=== PATIENT | female | born 1960 | race African-American/Black ===

== ENCOUNTER 2019-05-12 15:29 | Inpatient (IN) | payer OTHER ==
[2019-05-12 15:59] VITALS: BMI 33.6
--- NOTE | 2019-05-12 17:18 | HP ---
COWS - Scale Resting Pulse: 0= [place] 80 or Below Sweatin=Flushed/Facial Moisture Restless Observation: 0= Sits Still Pupil Size: 0= Normal to Room Light Bone or Joint Aches: 1= Mild Discomfort Runny Nose/ Eye Tearin= Nasal Congestion GI Upset > 30mins: 2= Nausea/Diarrhea Tremor Observation: 1= Tremor [place], Not Seen Yawning Observation: 1= 1-2x During Session Anxiety or Irritability: 1=Feels Anxious/Irritable Goose Flesh Skin: 3=Piloerection COWS Score: 12 CIWA Score - Admission Criteria OASAS Guidelines: Admission for Medically Managed Detox: Requires at least one of the followin. CIWA greater than 12 2. Seizures within the past 24 hours 3. Delirium tremens within the past 24 hours 4. Hallucinations within the past 24 hours 5. Acute intervention needed for co occurring medical disorder 6. Acute intervention needed for co occurring psychiatric disorder 7. Severe withdrawal that cannot be handled at a lower level of care (continued vomiting, continued diarrhea, abnormal vital signs) requiring intravenous medication and/or fluids 8. Admitting History and Physical - Admission Chief Complaint: Withdrawal symptoms History of Present Illness: 58 woman with an extensive history of heroin dependence is here seeking detox services. She reports she last completed detox in 2017 at [facility]. Longest period of heroin abstinence has been 2 years. History Source: Patient Limitations to Obtaining History: No Limitations - Past Medical History Cardiovascular: Yes: HTN Pulmonary: Yes: Asthma Gastrointestinal: Yes: Gastritis, GERD Psych: Yes: Anxiety, Bipolar Musculoskeletal: Yes: Chronic low back pain Rheumatology: Yes: Rheumatoid Arthritis - Past Surgical History Past Surgical History: Yes: , Hernia Repair, Hysterectomy - Smoking History Smoking history: Current every day smoker Have you smoked in the past 12 months: Yes Aproximately how many cigarettes per day: 7 - Alcohol/Substance Use Hx Alcohol Use: No History of Substance Use: reports: Heroin Date of Last Use: 05/12/19 - Social History Usual Living Arrangement: Yes: With Child Do you think of yourself as: Straight/Heterosexual ADL: Independent History of Recent Travel: No Admission ROS S - HPI Chief Complaint: Withdrawal symptoms Allergies/Adverse Reactions: Allergies Allergy/AdvReac Type Severity Reaction Status Date / Time acetaminophen [From Vicodin] AdvReac Intermediate Difficulty Verified 05/12/19 15:48 Breathing aspirin AdvReac Intermediate Hives Verified 05/12/19 15:48 hydrocodone [From Vicodin] AdvReac Intermediate Difficulty Verified 05/12/19 15: 48 Breathing Tetracyclines AdvReac Intermediate Hives Verified 05/12/19 15:48 History of Present Illness: 58 woman with an extensive history of heroin dependence is here seeking detox services. She reports she last completed detox in 2017 at [facility]. Longest period of heroin abstinence has been 2 years. Exam Limitations: No Limitations - Ebola screening Have you traveled outside of the country in the last 21 days: No Have you had contact with anyone from an Ebola affected area: No Do you have a fever: No - Review of Systems Constitutional: Chills, Changes in sleep, Unintentional Wgt. Loss EENT: reports: Tearing, Nose Congestion Respiratory: reports: Cough, Shortness of Breath Cardiac: reports: No Symptoms Reported GI: reports: Nausea, Abdominal cramping : reports: No Symptoms Reported Musculoskeletal: reports: Back Pain, Joint Pain, Neck Pain Integumentary: reports: No Symptoms Reported Neuro: reports: Numbness, Weakness Endocrine: reports: No Symptoms Reported Hematology: reports: No Symptoms Reported Psychiatric: reports: Orientated x3, Depressed, other (H/o bipolar and depression) Other Systems: Reviewed and Negative Patient History - Patient Medical History Hx Anemia: No Hx Asthma: Yes Hx Chronic Obstructive Pulmonary Disease (COPD): No Hx Cancer: No Hx Cardiac Disorders: Yes Hx Congestive Heart Failure: No Hx Hypertension: Yes Hx Hypercholesterolemia: No Hx Pacemaker: No HX Cerebrovascular Accident: Yes (H/o CVA in 2006) Hx Seizures: No Hx Dementia: No Hx Diabetes: No Hx Gastrointestinal Disorders: Yes Hx Liver Disease: No Hx Genitourinary Disorders: No Hx Sexually Transmitted Disorders: Yes (Chlamydia (treated)) Hx Renal Disease (ESRD): No Hx Thyroid Disease: No Hx Human Immunodeficiency Virus (HIV): No Hx Hepatitis C: No Hx Depression: Yes Hx Suicide Attempt: Yes (2004: Attempted to overdose on pills ) Hx Bipolar Disorder: Yes Hx Schizophrenia: No Other Medical History: H/o Anxiety - Patient Surgical History Past Surgical History: Yes Hx Abdominal Surgery: Yes (Hernia repair ) Hx Section: Yes Hx Hysterectomy: Yes - PPD History Previous Implant?: Yes Documented Results: Negative w/o proof PPD to be Administered?: Yes - Reproductive History Patient is a Female of Child Bearing Age (11 -55 yrs old): No Last Menstrual Period: 05/20/86 Patient : No - Smoking Cessation Smoking history: Current every day smoker Have you smoked in the past 12 months: Yes Aproximately how many cigarettes per day: 7 Initiated information on smoking cessation: Yes 'Breaking Loose' booklet given: 05/12/19 - Substance & Tx. History Hx Alcohol Use: No Hx Substance Use: Yes Substance Use Type: Heroin Hx Substance Use Treatment: Yes (2017: Detox at [facility] ) - Substances abused Heroin Substance route: Inhalation Frequency: Daily Amount used: 7 BAGS Age of first use: 32 Date of last use: 05/12/19 Admission Physical Exam [facility] - Vital Signs Vital Signs: Vital Signs - 24 hr 05/12/19 05/12/19 15:43 16:56 Temperature 98 F 98 F Pulse Rate 65 65 Respiratory 18 18 Rate Blood Pressure 121/73 121/73 - Physical General Appearance: Yes: Sweating, Anxious HEENTM: Yes: Hearing grossly Normal, Normocephalic, Normal Voice Respiratory: Yes: Chest Non-Tender, Lungs Clear, Normal Breath Sounds, No Respiratory Distress, No Accessory Muscle Use Breast: Yes: Breast Exam Deferred Cardiology: Yes: Regular Rhythm, Regular Rate Abdominal: Yes: Normal Bowel Sounds, Non Tender Genitourinary: Yes: Other (No complaints reported.) Back: Yes: Normal Inspection Musculoskeletal: Yes: full range of Motion, Gait Steady, Pelvis Stable Extremities: Yes: Non-Tender Neurological: Yes: Alert, Normal Mood/Affect, Normal Response Integumentary: Yes: Normal Color, Dry, Warm Lymphatic: Yes: Within Normal Limits - Diagnostic (1) Opioid dependence, uncomplicated Current Visit: Yes Status: Chronic (2) Nicotine dependence Current Visit: Yes Status: Chronic (3) HTN (hypertension) Current Visit: Yes Status: Chronic (4) Asthma Current Visit: Yes Status: Chronic (5) History of CVA (cerebrovascular accident) Current Visit: Yes Status: Chronic (6) Neuropathy Current Visit: Yes Status: Chronic (7) Gastritis Current Visit: Yes Status: Chronic (8) Rheumatoid arthritis Current Visit: Yes Status: Chronic Cleared for Admission S - Detox or Rehab S Level of Care: Medically Managed Detox Regimen/Protocol: Methadone Breathalyzer - Breathalyzer Breathalyzer: 0 Urine Drug Screen - Test Device Lot number: [id number] Expiration date: 12/17/20 - Control Is test valid?: Yes - Results Drug screen NEGATIVE: No Urine drug screen results: FEN-Fentanyl, MOP-Opiates, BZO-Benzodiazepines Inpatient Rehab Admission - Rehab Decision to Admit Inpatient rehab admission?: No
[2019-05-12] MEDS ORDERED: MAG HYDROX/AL HYDROX/SIMETH 30 ML UNIT-DOSE CUP PO PRN (17:36)
[2019-05-12] MEDS ORDERED: hydrOXYzine PAMOATE 25 MG CAPSULE (FP) PO PRN (17:36)
[2019-05-12] MEDS ORDERED: cloNIDine HCL 0.1 MG TABLET PO PRN (17:36)
[2019-05-12] MEDS ORDERED: IBUPROFEN 400 MG TABLET (FP) PO PRN (17:36)
[2019-05-12] MEDS ORDERED: BISMUTH SUBSALICYLATE 524 MG/30 ML UD PO PRN (17:36)
[2019-05-12] MEDS ORDERED: NICOTINE POLACRILEX 2 MG GUM BUC PRN (17:36)
[2019-05-12] MEDS ORDERED: MAGNESIUM CITRATE 300 ML BOTTLE PO PRN (17:36)
[2019-05-12] MEDS ORDERED: MAGNESIUM HYDROX 2400MG/30ML ORAL SUSPENSION 30 ML CUP PO PRN (17:36)
[2019-05-12] MEDS ORDERED: MENTHOL/PHENOL 1 EACH UD MM PRN (17:36)
[2019-05-12] MEDS ORDERED: MELATONIN 5 MG TABLETS PO PRN (17:36)
[2019-05-12] MEDS ORDERED: ALBUTEROL SO4 8 GM HFA INHALER IH PRN (17:39)
[2019-05-12] MEDS ORDERED: METHADONE HCL 10 MG TABLET (FOR DETOX USE ONLY) PO ONE (18:30)
[2019-05-12] MEDS: clonazePAM 0.5 MG TABLET PO PRN ×2 (18:54→22:34)
[2019-05-12] MEDS ORDERED: traZODone HCL 50 MG TABLET (FP) PO PRN (22:00)
[2019-05-12] MEDS: THIAMINE HCL 100 MG TABLET (FP) PO SCH (22:33)
[2019-05-12] MEDS: METHOCARBAMOL 500 MG TABLET PO PRN (22:35)
[2019-05-13] MEDS ORDERED: METHADONE HCL 5 MG TABLET (FOR DETOX USE ONLY) PO ONE (10:00)
[2019-05-13] MEDS: PRENATAL VITAMINS W/ FOLIC ACID TABLET (FP) PO SCH (10:20)
[2019-05-13] MEDS: MONTELUKAST NA 10 MG TABLET PO SCH (10:20)
[2019-05-13] MEDS: PATIENT'S OWN MEDICATION (NON-FORMULARY) (Omeprazole [Omeprazole] 40 MG) PO SCH (10:20)
--- NOTE | 2019-05-13 10:46 | PN ---
BHS COWS - Scale Resting Pulse: 0= [place] 80 or Below Sweatin= Chills/Flushing Restless Observation: 0= Sits Still Pupil Size: 0= Normal to Room Light Bone or Joint Aches: 1= Mild Discomfort Runny Nose/ Eye Tearin= Runny Nose/Eyes GI Upset > 30mins: 1= Stomach Cramp Tremor Observation of Outstretched Hands: 2= Slight Tremor Visible Yawning Observation: 0= None Anxiety or Irritability: 2=Irritable/Anxious Goose Flesh Skin: 0=Smooth Skin COWS Score: 9 BHS Progress Note (SOAP) Subjective: 58 years old female admitted on 05/12/19 for opiate withdrawal sx management treating with methadone detox regimen c/o running nose claritin 10 mg po hs x 1 Objective: 05/13/19 10:48 Vital Signs Temperature 98.4 F 05/13/19 09:26 Pulse Rate 58 L 05/13/19 09:26 Respiratory Rate 18 05/13/19 09:26 Blood Pressure 123/80 05/13/19 09:26 O2 Sat by Pulse Oximetry (%) 05/13/19 10:48 lab pending Assessment: 05/13/19 10:48 opiate withdrawal Plan: methadone regimen
[2019-05-13 11:01] LABS: BILIRUBIN,TOTAL 0.3 mg/dL (0.2-1); BLOOD UREA NITROGEN 10.1 mg/dL (7-18); CREATININE 0.8 mg/dL (0.55-1.3); POTASSIUM 3.5 mmol/L (3.5-5.1); TOT PROT 6.2 g/dl (6.4-8.2)
[2019-05-13 11:02] LABS: HEMATOCRIT 36.4 % (32.4-45.2); HEMOGLOBIN 11.8 GM/dL (10.7-15.3); MCH 29.3 pg (25.7-33.7); MCHC 32.4 g/dl (32.0-36.0); MEAN CELL VOLUME 90.5 fl (80-96); MEAN PLT VOLUME 11.1 fl (7.5-11.1); PLATELET COUNT 181 K/MM3 (134-434); RBC 4.03 M/mm3 (3.60-5.2); RDW 13.6 % (11.6-15.6); WHITE BLOOD COUNT 6.3 K/mm3 (4.0-10.0)
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
[2019-05-13] MEDS ORDERED: LORATADINE 10 MG TABLET PO ONE (22:00)
[2019-05-13] MEDS ORDERED: AMITRIPTYLINE HCL 50 MG TABLET PO SCH (22:00)
[2019-05-13] MEDS: METHOCARBAMOL 500 MG TABLET PO PRN (22:23)
[2019-05-13] MEDS: THIAMINE HCL 100 MG TABLET (FP) PO SCH (22:23)
--- NOTE | 2019-05-14 05:13 | EKG ---
Test Reason : Blood Pressure : / mmHG Vent. Rate : 058 BPM Atrial Rate : 058 BPM P-R Int : 138 ms QRS Dur : 096 ms QT Int : 444 ms P-R-T Axes : 050 023 032 degrees QTc Int : 435 ms SINUS BRADYCARDIA NONSPECIFIC T WAVE ABNORMALITY ABNORMAL ECG NO PREVIOUS ECGS AVAILABLE Confirmed by LUIS BEJARANO, TATO ([id number]) on 05/14/2019 5:13:14 AM Referred By: MARTINA Confirmed By:TATO SMITH MD
--- NOTE | 2019-05-14 09:32 | PN ---
BHS COWS - Scale Resting Pulse: 0= [place] 80 or Below Sweatin= No chills or Flushing Restless Observation: 0= Sits Still Pupil Size: 0= Normal to Room Light Bone or Joint Aches: 1= Mild Discomfort Runny Nose/ Eye Tearin= Nasal Congestion GI Upset > 30mins: 1= Stomach Cramp Tremor Observation of Outstretched Hands: 1= Tremor [place], Not Seen Yawning Observation: 0= None Anxiety or Irritability: 1=Feels Anxious/Irritable Goose Flesh Skin: 0=Smooth Skin COWS Score: 5 BHS Progress Note (SOAP) Subjective: 58 years old female admitted on 05/12/19 for opiate withdrawal sx management treating with methadone detox regimen feeling better today social with peers in day room discuss the benefits of picking up narcan from the pharmacy Objective: 05/14/19 09:31 Vital Signs Temperature 98.1 F 05/14/19 06:21 Pulse Rate 52 L 05/14/19 06:21 Respiratory Rate 18 05/14/19 06:21 Blood Pressure 125/73 05/14/19 06:21 O2 Sat by Pulse Oximetry (%) Laboratory Last Values WBC 6.3 K/mm3 (4.0-10.0) 05/13/19 07:50 RBC 4.03 M/mm3 (3.60-5.2) 05/13/19 07:50 Hgb 11.8 GM/dL (10.7-15.3) 05/13/19 07:50 Hct 36.4 % (32.4-45.2) 05/13/19 07:50 MCV 90.5 fl (80-96) 05/13/19 07:50 MCH 29.3 pg (25.7-33.7) 05/13/19 07:50 MCHC 32.4 g/dl (32.0-36.0) 05/13/19 07:50 RDW 13.6 % (11.6-15.6) 05/13/19 07:50 Plt Count 181 K/MM3 (134-434) 05/13/19 07:50 MPV 11.1 fl (7.5-11.1) 05/13/19 07:50 Sodium 145 mmol/L (136-145) 05/13/19 07:50 Potassium 3.5 mmol/L (3.5-5.1) 05/13/19 07:50 Chloride 107 mmol/L (98-107) 05/13/19 07:50 Carbon Dioxide 33 mmol/L (21-32) H 05/13/19 07:50 Anion Gap 5 MMOL/L (8-16) L 05/13/19 07:50 BUN 10.1 mg/dL (7-18) 05/13/19 07:50 Creatinine 0.8 mg/dL (0.55-1.3) 05/13/19 07:50 Est GFR (CKD-EPI)AfAm 95.52 05/13/19 07:50 Est GFR (CKD-EPI)NonAf 82.42 05/13/19 07:50 Random Glucose 99 mg/dL (74-106) 05/13/19 07:50 Calcium 9.0 mg/dL (8.5-10.1) 05/13/19 07:50 Total Bilirubin 0.3 mg/dL (0.2-1) 05/13/19 07:50 AST 13 U/L (15-37) L 05/13/19 07:50 ALT 24 U/L (13-61) 05/13/19 07:50 Alkaline Phosphatase 81 U/L (45-117) 05/13/19 07:50 Total Protein 6.2 g/dl (6.4-8.2) L 05/13/19 07:50 Albumin 3.0 g/dl (3.4-5.0) L 05/13/19 07:50 RPR Titer Nonreactive (NONREACTIVE) 05/13/19 07:50 lab noted Assessment: 05/14/19 09:31 opiate withdrawal Plan: methadone regimen
[2019-05-14] MEDS ORDERED: METHADONE HCL 10 MG TABLET (FOR DETOX USE ONLY) PO ONE (10:00)
[2019-05-14] MEDS: MONTELUKAST NA 10 MG TABLET PO SCH (11:06)
[2019-05-14] MEDS: PRENATAL VITAMINS W/ FOLIC ACID TABLET (FP) PO SCH (11:06)
[2019-05-14] MEDS: PATIENT'S OWN MEDICATION (NON-FORMULARY) (Omeprazole [Omeprazole] 40 MG) PO SCH (11:07)
[2019-05-14] MEDS ORDERED: DICYCLOMINE HCL 10 MG CAPSULE PO ONE (13:45)
[2019-05-14] MEDS ORDERED: AMITRIPTYLINE HCL 100 MG TABLET PO SCH (22:00)
[2019-05-14] MEDS: THIAMINE HCL 100 MG TABLET (FP) PO SCH (22:13)
[2019-05-14] MEDS: METHOCARBAMOL 500 MG TABLET PO PRN (22:15)
[2019-05-15] MEDS ORDERED: METHADONE HCL 5 MG TABLET (FOR DETOX USE ONLY) PO ONE (06:00)
[2019-05-15] MEDS: PATIENT'S OWN MEDICATION (NON-FORMULARY) (Omeprazole [Omeprazole] 40 MG) PO SCH (09:28)
[2019-05-15] MEDS: PRENATAL VITAMINS W/ FOLIC ACID TABLET (FP) PO SCH (09:28)
[2019-05-15 13:44] VITALS: BP 134/83; PULSE 64; TEMP 100
--- NOTE | 2019-05-15 14:29 | DS ---
[facility] Detox Discharge Summary Admission Date: 05/12/19 Discharge Date: 05/15/19 - History Present History: Opioid Dependence Additional Comments: Pt is medically cleared and discharged to [facility] for continued management. Pt completed the detox protocol. Pt is encouraged to follow through with the rehab protocol. Pt verbalized understanding. Pt is alert and oriented x3 and in no acute respiratory distress. Pertinent Past History: h/o HTN,GERD, asthma, and heroin use disorder. - Physical Exam Results Vital Signs: Vital Signs Temperature 100.0 F H 05/15/19 13:43 Pulse Rate 64 05/15/19 13:43 Respiratory Rate 18 05/15/19 13:43 Blood Pressure 134/83 05/15/19 13:43 O2 Sat by Pulse Oximetry (%) Vital Signs 05/15/19 05/15/19 09:13 13:43 Temperature 97.6 F 100.0 F H Pulse Rate 87 64 Respiratory 18 18 Rate Blood Pressure 144/90 134/83 Laboratory Last Values WBC 6.3 K/mm3 (4.0-10.0) 05/13/19 07:50 RBC 4.03 M/mm3 (3.60-5.2) 05/13/19 07:50 Hgb 11.8 GM/dL (10.7-15.3) 05/13/19 07:50 Hct 36.4 % (32.4-45.2) 05/13/19 07:50 MCV 90.5 fl (80-96) 05/13/19 07:50 MCH 29.3 pg (25.7-33.7) 05/13/19 07:50 MCHC 32.4 g/dl (32.0-36.0) 05/13/19 07:50 RDW 13.6 % (11.6-15.6) 05/13/19 07:50 Plt Count 181 K/MM3 (134-434) 05/13/19 07:50 MPV 11.1 fl (7.5-11.1) 05/13/19 07:50 Sodium 145 mmol/L (136-145) 05/13/19 07:50 Potassium 3.5 mmol/L (3.5-5.1) 05/13/19 07:50 Chloride 107 mmol/L (98-107) 05/13/19 07:50 Carbon Dioxide 33 mmol/L (21-32) H 05/13/19 07:50 Anion Gap 5 MMOL/L (8-16) L 05/13/19 07:50 BUN 10.1 mg/dL (7-18) 05/13/19 07:50 Creatinine 0.8 mg/dL (0.55-1.3) 05/13/19 07:50 Est GFR (CKD-EPI)AfAm 95.52 05/13/19 07:50 Est GFR (CKD-EPI)NonAf 82.42 05/13/19 07:50 Random Glucose 99 mg/dL (74-106) 05/13/19 07:50 Calcium 9.0 mg/dL (8.5-10.1) 05/13/19 07:50 Total Bilirubin 0.3 mg/dL (0.2-1) 05/13/19 07:50 AST 13 U/L (15-37) L 05/13/19 07:50 ALT 24 U/L (13-61) 05/13/19 07:50 Alkaline Phosphatase 81 U/L (45-117) 05/13/19 07:50 Total Protein 6.2 g/dl (6.4-8.2) L 05/13/19 07:50 Albumin 3.0 g/dl (3.4-5.0) L 05/13/19 07:50 RPR Titer Nonreactive (NONREACTIVE) 05/13/19 07:50 Labs noted. Pertinent Admission Physical Exam Findings: withdrawal symptoms. - Treatment Hospital Course: Detox Protocol Followed, Detoxed Safely, Responded well, Discharged Condition Good, Rehab Referral Accepted Patient has Accepted a Rehab Referral to: [facility] - Medication Discharge Medications: Ambulatory Orders Albuterol Sulfate Inhaler - [Ventolin HFA Inhaler -] 2 inh PO Q4H PRN 05/12/19 Alprazolam [Xanax] 0.25 mg PO BID 05/12/19 Clonidine HCl 0.3 mg PO BID 05/12/19 Montelukast Sodium [Singulair] 10 mg PO DAILY 05/12/19 Omeprazole 40 mg PO DAILY 05/12/19 Naloxone HCl [Narcan] 4 mg NS ASDIR PRN #1 spray 05/13/19 - Diagnosis (1) Opioid dependence, uncomplicated Current Visit: Yes Status: Acute (2) Asthma Current Visit: Yes Status: Chronic (3) Gastritis Current Visit: Yes Status: Chronic (4) HTN (hypertension) Current Visit: Yes Status: Chronic (5) Nicotine dependence Current Visit: Yes Status: Chronic (6) Rheumatoid arthritis Current Visit: Yes Status: Chronic (7) History of CVA (cerebrovascular accident) Current Visit: Yes Status: Resolved - AMA Did Patient Leave Against Medical Advice: No
[2019-05-15] MEDS ORDERED: MONTELUKAST NA 10 MG TABLET PO SCH (22:00)
== END 2019-05-15 14:21 | disposition other institution (70) | DRG 773 ==
LOC: YASAS 15:29 → Y3N 18:01
PROVIDERS: ADMIT Allergy & Immunology; ATTEND Allergy & Immunology
PROC: HZ2ZZZZ Detoxification Services for Substance Abuse Treatment (ICD-10-PCS; principal; 2019-05-12)
DX: F11.23 Opioid dependence with withdrawal (principal); F17.210 Nicotine dependence, cigarettes, uncomplicated; F31.81 Bipolar II disorder; F19.24 Other psychoactive substance dependence with psychoactive substance-induced mood disorder; F19.282 Other psychoactive substance dependence with psychoactive substance-induced sleep disorder; I10 Essential (primary) hypertension; J45.909 Unspecified asthma, uncomplicated; M06.9 Rheumatoid arthritis, unspecified; K21.9 Gastro-esophageal reflux disease without esophagitis; M54.5 Low back pain; G89.29 Other chronic pain; G62.9 Polyneuropathy, unspecified; Z87.42 Personal history of other diseases of the female genital tract; Z86.73 Personal history of transient ischemic attack (TIA), and cerebral infarction without residual deficits; Z91.410 Personal history of adult physical and sexual abuse; Z88.1 Allergy status to other antibiotic agents; Z88.6 Allergy status to analgesic agent; Z91.5 Personal history of self-harm
CPT/HCPCS: 36415; 80053; 85027; 86593; 93005; 93010

== ENCOUNTER 2019-05-15 14:40 | Inpatient (IN) | payer OTHER ==
[2019-05-15] MEDS ORDERED: ACETAMINOPHEN 325 MG TABLET (FP) PO PRN (15:07)
[2019-05-15] MEDS ORDERED: hydrOXYzine PAMOATE 25 MG CAPSULE (FP) PO PRN (15:07)
[2019-05-15] MEDS ORDERED: LOPERAMIDE HCL 2 MG CAPSULE PO PRN (15:07)
[2019-05-15] MEDS ORDERED: MENTHOL/PHENOL 1 EACH UD MM PRN (15:07)
[2019-05-15] MEDS ORDERED: MAGNESIUM CITRATE 300 ML BOTTLE PO PRN (15:07)
[2019-05-15] MEDS ORDERED: guaiFENesin 200 MG/10 ML 10 ML UNIT-DOSE CUPS PO PRN (15:07)
[2019-05-15] MEDS ORDERED: IBUPROFEN 400 MG TABLET (FP) PO PRN (15:07)
[2019-05-15] MEDS ORDERED: MAGNESIUM HYDROX 2400MG/30ML ORAL SUSPENSION 30 ML CUP PO PRN (15:07)
[2019-05-15] MEDS ORDERED: P-EPHED 60MG/TRIPROLIDI 2.5MG TABLET PO PRN (15:07)
[2019-05-15] MEDS ORDERED: NICOTINE POLACRILEX 2 MG GUM BUC PRN (15:13)
--- NOTE | 2019-05-15 15:19 | PN ---
[facility] Progress Note Note: Patient admitted to [facility], medication orders place, home medications reviewed, labs reviewed, problem list reviewed. This is the patient's first admission to [facility].
[2019-05-15] MEDS ORDERED: traZODone HCL 50 MG TABLET (FP) PO PRN (20:44)
[2019-05-15] MEDS: MELATONIN 5 MG TABLETS PO PRN (21:36)
[2019-05-15] MEDS: THIAMINE HCL 100 MG TABLET (FP) PO SCH (21:36)
[2019-05-15] MEDS: MONTELUKAST NA 10 MG TABLET PO SCH (21:36)
[2019-05-16] MEDS: PRENATAL VITAMINS W/ FOLIC ACID TABLET (FP) PO SCH (09:51)
[2019-05-16] MEDS: cloNIDine HCL 0.1 MG TABLET PO SCH (09:52)
[2019-05-16] MEDS: NICOTINE 14 MG/24 HOURS TOPICAL PATCH TD SCH (09:52)
[2019-05-16] MEDS: MAG HYDROX/AL HYDROX/SIMETH 30 ML UNIT-DOSE CUP PO PRN (09:52)
--- NOTE | 2019-05-16 10:35 | PN ---
S Progress Note Note: Pt wants to use own prilosec. Does not want the protonix we have on formulary- pt may use own
[2019-05-16] MEDS: OMEPRAZOLE PO SCH (11:45)
--- NOTE | 2019-05-16 13:35 | CONSULT ---
[facility] Psychiatric Consult - Data Date of interview: 05/16/19 Admission source: Transfer from [address] [place] [address]. Identifying data: First visit at [facility] and admission to [address] after completion of detoxification treatment ([address] [place] [address]) for this 58 y/o AA female seeking preservation of sobriety in rehabilitative care (CHARLIE issues : heroin, nicotine, benzodiazepine) and continuous management of bipolar mood disorder + insomnia. patient is single, a mother of two, homeless, unemployed, disabled and supported on [employer] benefits. Substance Abuse History: Discussed with the patient. Details in current [facility] report as follows : Smoking history: Current every day smoker. Have you smoked in the past 12 months: Yes. Aproximately how many cigarettes per day: 7. Initiated information on smoking cessation: Yes. 'Breaking Loose' booklet given : 05/12/19. - Substance & Tx. History. Hx Alcohol Use: No. Hx Substance Use: Yes. Substance Use Type: Heroin. Hx Substance Use Treatment: Yes (2017: Detox at [facility] ). - Substances abused. Heroin. Substance route: Inhalation. Frequency: Daily. Amount used: 7 BAGS. Age of first use: 32. Date of last use : 05/12/19 Medical History: Medical profile is remarkable for abdominal hernia (self-report ), antecedent of CVA (2009), hypertension, bronchial asthma, arthritis and gastritis. Psychiatric History: Patient denies history of psychiatric hospitalizations. She reports previous psychiatric OPD care for bipolar disorder (diagnosed in early while residing in [place]). At the time, the patient was reportedly medicated with seroquel + amitryptiline + xanax. Ms Rojas denies receiving OPD care. Patient has been lost to follow-up since she left [place] years ago. For a while, she depended on her primary care physician for medications refills. Patient confirms history of one suicide attempt via overdose with medications ( 2004). Physical/Sexual Abuse/Trauma History: Patient denies. Additional Comment: Urine drug screen results: FEN-Fentanyl, MOP-Opiates, BZO- Benzodiazepines. Noted. Mental Status Exam - Mental Status Exam Alert and Oriented to: Time, Place, Person Cognitive Function: Good Patient Appearance: Well Groomed Mood: Withdrawn, Anxious, Irritable Affect: Mood Congruent, Constricted Patient Behavior: Appropriate, Cooperative Speech Pattern: Clear Voice Loudness: Normal Thought Process: Intact, Goal Oriented Thought Disorder: Not Present Hallucinations: Denies Suicidal Ideation: Denies Homicidal Ideation: Denies Insight/Judgement: Fair Sleep: Poorly, Difficulty falling asleep Appetite: Good Gait/Station: Normal Psychiatric Findings - Problem List ([place] 1, 2,3) (1) Opioid dependence, uncomplicated Current Visit: Yes Status: Chronic (2) Benzodiazepine dependence Current Visit: Yes Status: Chronic (3) Nicotine dependence Current Visit: Yes Status: Chronic (4) Substance induced mood disorder Current Visit: Yes Status: Chronic (5) History of bipolar disorder Current Visit: Yes Status: Chronic (6) Insomnia Current Visit: Yes Status: Chronic (7) Non-compliance Current Visit: Yes Status: Chronic - Initial Treatment Plan Initial Treatment Plan: Contact made with pharmacist at [facility] pharmacy ) : only refills for xanax found in files. Psychoeducation. Sleep hygiene. Support. Amitryptiline held in view of abnormal EKG (05/12/19) showing sinus bradycardia. Will resume trazodone 50 mg po hs. Side effects/benefits of the drug are discussed with the patient. Ms Rojas has expressed her agreement with this plan of care. Gave consent (verbal) to MD. Beltran.
[2019-05-16] MEDS: THIAMINE HCL 100 MG TABLET (FP) PO SCH (21:30)
[2019-05-16] MEDS: traZODone HCL 50 MG TABLET (FP) PO SCH (21:30)
[2019-05-16] MEDS: MONTELUKAST NA 10 MG TABLET PO SCH (21:30)
[2019-05-16] MEDS: MELATONIN 5 MG TABLETS PO PRN (21:31)
[2019-05-16] MEDS ORDERED: QUEtiapine FUMARATE 50 MG TABLET PO SCH (22:00)
[2019-05-17] MEDS ORDERED: PT OWN MED DRAWER 7, Y5N ONE ×2 (08:39→21:45)
[2019-05-17] MEDS: cloNIDine HCL 0.1 MG TABLET PO SCH (10:05)
[2019-05-17] MEDS: NICOTINE 14 MG/24 HOURS TOPICAL PATCH TD SCH (10:06)
[2019-05-17] MEDS: PRENATAL VITAMINS W/ FOLIC ACID TABLET (FP) PO SCH (10:06)
[2019-05-17] MEDS: OMEPRAZOLE PO SCH (10:54)
[2019-05-17] MEDS: MONTELUKAST NA 10 MG TABLET PO SCH (21:44)
[2019-05-17] MEDS: traZODone HCL 50 MG TABLET (FP) PO SCH (21:44)
[2019-05-17] MEDS: THIAMINE HCL 100 MG TABLET (FP) PO SCH (21:44)
[2019-05-17] MEDS: ALBUTEROL SO4 8 GM HFA INHALER IH PRN (21:46)
[2019-05-17] MEDS: MELATONIN 5 MG TABLETS PO PRN (21:48)
[2019-05-18] MEDS ORDERED: PT OWN MED DRAWER 7, Y5N ONE (08:51)
[2019-05-18] MEDS: OMEPRAZOLE PO SCH (09:27)
[2019-05-18] MEDS: NICOTINE 14 MG/24 HOURS TOPICAL PATCH TD SCH (09:28)
[2019-05-18] MEDS: MONTELUKAST NA 10 MG TABLET PO SCH (09:28)
[2019-05-18] MEDS: PRENATAL VITAMINS W/ FOLIC ACID TABLET (FP) PO SCH (09:28)
[2019-05-18] MEDS: cloNIDine HCL 0.1 MG TABLET PO SCH (09:30)
[2019-05-18] MEDS: METHOCARBAMOL 500 MG TABLET PO PRN (19:09)
[2019-05-18] MEDS: traZODone HCL 50 MG TABLET (FP) PO SCH (21:36)
[2019-05-18] MEDS: MELATONIN 5 MG TABLETS PO PRN (21:36)
[2019-05-18] MEDS: THIAMINE HCL 100 MG TABLET (FP) PO SCH (21:37)
[2019-05-19] MEDS: OMEPRAZOLE PO SCH (10:20)
[2019-05-19] MEDS: PRENATAL VITAMINS W/ FOLIC ACID TABLET (FP) PO SCH (10:20)
[2019-05-19] MEDS: cloNIDine HCL 0.1 MG TABLET PO SCH (10:20)
[2019-05-19] MEDS: NICOTINE 14 MG/24 HOURS TOPICAL PATCH TD SCH (10:21)
[2019-05-19] MEDS: MONTELUKAST NA 10 MG TABLET PO SCH (10:22)
[2019-05-19] MEDS: METHOCARBAMOL 500 MG TABLET PO PRN ×2 (10:22→21:37)
--- NOTE | 2019-05-19 10:31 | EKG ---
Test Reason : Blood Pressure : / mmHG Vent. Rate : 056 BPM Atrial Rate : 056 BPM P-R Int : 132 ms QRS Dur : 100 ms QT Int : 450 ms P-R-T Axes : 060 022 019 degrees QTc Int : 434 ms SINUS BRADYCARDIA WITH SINUS ARRHYTHMIA NONSPECIFIC T WAVE ABNORMALITY ABNORMAL ECG WHEN COMPARED WITH ECG OF 12-MAY-2019 18:06, NO SIGNIFICANT CHANGE WAS FOUND Confirmed by MD Lee, Yung ([id number]) on 05/19/2019 10:30:46 AM Referred By: Confirmed By:Yung Howard MD
[2019-05-19] MEDS: ALBUTEROL SO4 8 GM HFA INHALER IH PRN (16:05)
--- NOTE | 2019-05-19 16:51 | PN ---
Psychiatric Progress Note Vital Signs: Vital Signs Period Temp Pulse Resp BP Sys/Garcia Pulse Ox Last 24 Hr 98.8 F-98.8 F 82-84 17-18 112-120/78-88 Date of Session: 05/19/19 Chief Complaint:: " I need more trazodone. I still do not sleep well at night." HPI: Follow-up visit is to address complaint of refractory insomnia. Hospital course is, otherwise, unremarkable. ROS: Patient is ambulatory. Visible on the unit. No evidence of distress. Current Medications: Active Medications Generic Name Dose Route Start Last Admin Trade Name Freq PRN Reason Stop Dose Admin Acetaminophen 650 mg 05/15/19 15:07 Tylenol - PO Q4H PRN FEVER Al Hydroxide/Mg Hydroxide 30 ml 05/15/19 15:07 05/16/19 09:52 Mylanta Oral Suspension - PO 30 ml Q6H PRN Administration DYSPEPSIA Albuterol Sulfate 2 puff 05/15/19 15:09 05/19/19 16:05 Ventolin Hfa Inhaler - IH 2 puff Q4H PRN Administration SHORT OF BREATH/WHEEZING Clonidine 0.3 mg 05/16/19 10:00 05/19/19 10:20 Catapres - PO 0.3 mg DAILY YOEL Administration Eucalyptus/Menthol/Phenol/Sorbitol 1 each 05/15/19 15:07 Cepastat Lozenge - MM Q4H PRN SORE THROAT Guaifenesin 10 ml 05/15/19 15:07 Robitussin - PO Q6H PRN COUGH Loperamide HCl 4 mg 05/15/19 15:07 Imodium - PO Q6H PRN DIARRHEA Magnesium Citrate 300 ml 05/15/19 15:07 Citroma - PO Q48H PRN CONSTIPATION Magnesium Hydroxide 30 ml 05/15/19 15:07 Milk Of Magnesia - PO DAILY PRN CONSTIPATION Melatonin 5 mg 05/15/19 22:00 05/18/19 21:36 Melatonin PO 5 mg HS PRN Administration INSOMNIA Methocarbamol 500 mg 05/18/19 18:52 05/19/19 10:22 Robaxin - PO 500 mg BID PRN Administration MUSCLE SPASMS Montelukast Sodium 10 mg 05/18/19 10:00 05/19/19 10:22 Singulair - PO 10 mg DAILY@1000 YOEL Administration Nicotine 14 mg 05/16/19 10:00 05/19/19 10:21 Nicoderm Patch - TD 05/22/19 10:01 Not Given DAILY YOEL Nicotine 7 mg 05/23/19 10:00 Nicoderm Patch - TD DAILY YOEL Nicotine Polacrilex 2 mg 05/15/19 15:13 Nicorette Gum - BUC Q2H PRN NICOTINE REPLACEMENT RX Non-Formulary Medication 0 mg 05/16/19 10:45 05/19/19 10:20 Omeprazole [Omeprazole] PO 1 mg DAILY YOEL Administration Multivit/Folic Acid/Iron 1 tab 05/16/19 10:00 05/19/19 10:20 Vitamins (Sjr) - PO 1 tab DAILY YOEL Administration Pseudoephedrine/Triprolidine 1 combo 05/15/19 15:07 Actifed - PO TID PRN NASAL CONGESTION Thiamine HCl 100 mg 05/15/19 22:00 05/18/19 21:37 Vitamin B1 - PO Not Given HS YOEL Trazodone HCl 100 mg 05/19/19 22:00 Desyrel - PO HS YOEL Medication(s) Change(s): Trazodone is raised to 100 mg po hs. Side effects/ benefits re-discussed with the patient. Verbal consent granted to MD. Current Side Effect: No Lab tests ordered: No Lab tests reviewed: Yes Provider note:: Chart reviewed. Met with patient. Principles of sleep hygiene are revisited with the patient. Medications reviewed. Reassurance provided. Ms Rojas is noted as well groomed, somewhat irritable but in good control. No evidence of psychosis of lj. Patient is adherent to current treatment protocol. Uneventful hospital course. Stable mental status. Refer to MSE report for details. Observation. Total face to face time:: 25 Mental Status Exam - Mental Status Exam Alert and Oriented to: Time, Place, Person Cognitive Function: Good Patient Appearance: Well Groomed Mood: Withdrawn, Hopeful, Irritable Affect: Mood Congruent, Constricted Patient Behavior: Fatigued, Appropriate, Cooperative Speech Pattern: Clear, Appropriate Voice Loudness: Normal Thought Process: Intact, Goal Oriented Thought Disorder: Not Present Hallucinations: Denies Suicidal Ideation: Denies Homicidal Ideation: Denies Insight/Judgement: Fair Sleep: Poorly, Difficulty falling asleep Appetite: Good Gait/Station: Normal Psychiatric Treatment Plan - Problem List (1) Insomnia Current Visit: Yes Comment: . (2) Opioid dependence, uncomplicated Current Visit: Yes Comment: . (3) Benzodiazepine dependence Current Visit: Yes Comment: . (4) Nicotine dependence Current Visit: Yes Comment: . (5) Substance induced mood disorder Current Visit: Yes Comment: . (6) History of bipolar disorder Current Visit: Yes (7) Non-compliance Current Visit: Yes Comment: .
[2019-05-19] MEDS: THIAMINE HCL 100 MG TABLET (FP) PO SCH (21:37)
[2019-05-19] MEDS: MELATONIN 5 MG TABLETS PO PRN (21:37)
[2019-05-19] MEDS: traZODone HCL 100 MG TABLET (FP) PO SCH (21:38)
[2019-05-20] MEDS: NICOTINE 14 MG/24 HOURS TOPICAL PATCH TD SCH (09:05)
[2019-05-20] MEDS: OMEPRAZOLE PO SCH (09:05)
[2019-05-20] MEDS: cloNIDine HCL 0.1 MG TABLET PO SCH (09:05)
[2019-05-20] MEDS: PRENATAL VITAMINS W/ FOLIC ACID TABLET (FP) PO SCH (09:05)
[2019-05-20] MEDS: MONTELUKAST NA 10 MG TABLET PO SCH (09:05)
[2019-05-20] MEDS: METHOCARBAMOL 500 MG TABLET PO PRN ×2 (09:07→21:17)
[2019-05-20] MEDS: MAG HYDROX/AL HYDROX/SIMETH 30 ML UNIT-DOSE CUP PO PRN (12:07)
[2019-05-20] MEDS: traZODone HCL 100 MG TABLET (FP) PO SCH (21:17)
[2019-05-20] MEDS: THIAMINE HCL 100 MG TABLET (FP) PO SCH (21:17)
[2019-05-20] MEDS: MELATONIN 5 MG TABLETS PO PRN (21:18)
--- NOTE | 2019-05-21 08:29 | DS ---
[facility] Rehab Discharge Summary - [facility] Rehab Discharge Summary Admission Date: 05/15/19 Discharge Date: 05/21/19 - History Present History: Opioid dependence Additional Comments: pt is a 58 y/o female with a hx of CHARLIE admitted to rehab on 05/15/19 and requested to sign herself out this morning. Pt was seen by a counselor, Ms lindsey Mcneill to discuss aftercare follow up at [facility] in [facility]. Pt reports she has a primary care provider, Dr. Traore at [address] [place] [address]. Pertinent Past History: Asthma Gastritis HTN Hx CVA(no residual deficit) Neuropathy Rheumatoid Athritis Hx Inguinal Hernias/Repair - Discharge Physical Exam Vital Signs: Vital Signs Temperature 98.9 F 05/21/19 07:17 Pulse Rate 64 05/21/19 07:17 Respiratory Rate 16 05/21/19 07:17 Blood Pressure 124/72 05/21/19 07:17 O2 Sat by Pulse Oximetry (%) Pertinent Admission Physical Exam Findings: Unremarkable on admission - Treatment Discharge Condition: Discharge condition good Hospital Course: safety maintained - Medication Discharge Medications: Ambulatory Orders Albuterol Sulfate Inhaler - [Ventolin HFA Inhaler -] 2 inh PO Q4H PRN 05/12/19 Alprazolam [Xanax] 0.25 mg PO BID 05/12/19 Clonidine HCl 0.3 mg PO BID 05/12/19 Montelukast Sodium [Singulair] 10 mg PO DAILY 05/12/19 Omeprazole 40 mg PO DAILY 05/12/19 Naloxone HCl [Narcan] 4 mg NS ASDIR PRN #1 spray 05/13/19 traZODone HCL [Trazodone HCl] 50 mg PO HS PRN 05/15/19 Amitriptyline HCl [Elavil -] 100 mg PO HS 05/16/19 - Medication-Assisted Treatment (MAT) Medication-Assisted Treatment (MAT): No - Discharge Instructions Diet, activity, other medical instructions: Diet:NCS Activity: oob ad lamont Other medical instructions:follow up with your primary care provider for medical management within 1 week after discharge. Follow up at your nearest emergency room if needed for medical care. - Diagnosis (1) Asthma Status: Chronic Qualifiers: Asthma severity: unspecified severity Asthma persistence: unspecified Asthma complication type: unspecified Qualified Code(s): J45.909 - Unspecified asthma, uncomplicated (2) Benzodiazepine dependence Status: Chronic (3) Gastritis Status: Chronic Qualifiers: Gastritis type: unspecified gastritis Gastritis bleeding: without bleeding (4) HTN (hypertension) Status: Chronic Qualifiers: Hypertension type: essential hypertension Qualified Code(s): I10 - Essential (primary) hypertension (5) Neuropathy Status: Chronic (6) Nicotine dependence Status: Chronic Qualifiers: Nicotine product type: cigarettes Substance use status: uncomplicated Qualified Code(s): F17.210 - Nicotine dependence, cigarettes, uncomplicated (7) Non-compliance Status: Chronic (8) Opioid dependence, uncomplicated Status: Chronic (9) Rheumatoid arthritis Status: Chronic Qualifiers: Rheumatoid arthritis location: unspecified site (10) History of CVA (cerebrovascular accident) Status: Resolved - Follow-up Referral Minutes to complete discharge: 20 - AMA Did Patient Leave Against Medical Advice: Yes Additional Comments: Pt states she has own medications and no need for courtesy Rx given at this admission. Pt declined to be seen at [facility] ER for evaluation of her RLQ pain before discharge and wants to take care of it on her own. Dr Ro informed of pt's decision not to be transported to the [facility] ER for evaluation at this time.
--- NOTE | 2019-05-21 08:42 | PN ---
S Progress Note Note: Pt is a 58 y/o female with a hx of Heroin and benzo dependence admitted to rehab. Pt is discharging today but reports excruciating abdominal pain to right lower quadrant. Reports hx of Inguinal Hernia Repair, Hyterectomy, RA, CVA, HTN, Asthma. Vital Signs - 24 hr 05/20/19 05/21/19 05/21/19 14:41 00:30 03:30 Temperature 98.5 F Pulse Rate Respiratory 18 18 Rate Blood Pressure 05/21/19 07:17 Temperature 98.9 F Pulse Rate 64 Respiratory 16 Rate Blood Pressure 124/72 Active Medications Generic Name Dose Route Start Last Admin Trade Name Freq PRN Reason Stop Dose Admin Acetaminophen 650 mg 05/15/19 15:07 Tylenol - PO Q4H PRN FEVER Al Hydroxide/Mg Hydroxide 30 ml 05/15/19 15:07 05/20/19 12:07 Mylanta Oral Suspension - PO 30 ml Q6H PRN Administration DYSPEPSIA Albuterol Sulfate 2 puff 05/15/19 15:09 05/19/19 16:05 Ventolin Hfa Inhaler - IH 2 puff Q4H PRN Administration SHORT OF BREATH/WHEEZING Clonidine 0.3 mg 05/16/19 10:00 05/20/19 09:05 Catapres - PO 0.3 mg DAILY YOEL Administration Eucalyptus/Menthol/Phenol/Sorbitol 1 each 05/15/19 15:07 Cepastat Lozenge - MM Q4H PRN SORE THROAT Guaifenesin 10 ml 05/15/19 15:07 Robitussin - PO Q6H PRN COUGH Loperamide HCl 4 mg 05/15/19 15:07 Imodium - PO Q6H PRN DIARRHEA Magnesium Citrate 300 ml 05/15/19 15:07 Citroma - PO Q48H PRN CONSTIPATION Magnesium Hydroxide 30 ml 05/15/19 15:07 Milk Of Magnesia - PO DAILY PRN CONSTIPATION Melatonin 5 mg 05/15/19 22:00 05/20/19 21:18 Melatonin PO 5 mg HS PRN Administration INSOMNIA Methocarbamol 500 mg 05/18/19 18:52 05/20/19 21:17 Robaxin - PO 500 mg BID PRN Administration MUSCLE SPASMS Montelukast Sodium 10 mg 05/18/19 10:00 05/20/19 09:05 Singulair - PO 10 mg DAILY@1000 YOEL Administration Nicotine 14 mg 05/16/19 10:00 05/20/19 09:05 Nicoderm Patch - TD 05/22/19 10:01 Not Given DAILY YOEL Nicotine 7 mg 05/23/19 10:00 Nicoderm Patch - TD DAILY YOEL Nicotine Polacrilex 2 mg 05/15/19 15:13 Nicorette Gum - BUC Q2H PRN NICOTINE REPLACEMENT RX Non-Formulary Medication 0 mg 05/16/19 10:45 05/20/19 09:05 Omeprazole [Omeprazole] PO 40 mg DAILY YOEL Administration Multivit/Folic Acid/Iron 1 tab 05/16/19 10:00 05/20/19 09:05 Vitamins (Sjr) - PO 1 tab DAILY YOEL Administration Pseudoephedrine/Triprolidine 1 combo 05/15/19 15:07 Actifed - PO TID PRN NASAL CONGESTION Thiamine HCl 100 mg 05/15/19 22:00 05/20/19 21:17 Vitamin B1 - PO 100 mg HS YOEL Administration Trazodone HCl 100 mg 05/19/19 22:00 05/20/19 21:17 Desyrel - PO 100 mg HS YOEL Administration P/E:Alert o x 3,denies s/h/i oob ambulating with steady gait cardiac:s1 s2,rrr lungs:cta,jitendra. abdomen:soft,+bs,nd,sharp pain on palp of RLQ and guarded. A/P Abdominal pain(acute vs chronic cause) S/P Hx Old Inguinal Hernia repair(pt not sure if on same side) D/w pt will transfer to [facility] ER to check her then can d/c home and report given to Dr. Ro at the ER but pt refused stating she is going home and has a lot of things to take care of and will follow up with her primary care doctor.
[2019-05-21] MEDS ORDERED: PT OWN MED DRAWER 7, Y5N ONE (08:47)
[2019-05-21 09:21] VITALS: BP 138/77; PULSE 75; TEMP 97.8
[2019-05-21] MEDS: PRENATAL VITAMINS W/ FOLIC ACID TABLET (FP) PO SCH (09:25)
[2019-05-21] MEDS: OMEPRAZOLE PO SCH (09:25)
[2019-05-21] MEDS: MONTELUKAST NA 10 MG TABLET PO SCH (09:25)
[2019-05-21] MEDS: cloNIDine HCL 0.1 MG TABLET PO SCH (09:25)
[2019-05-21] MEDS: NICOTINE 14 MG/24 HOURS TOPICAL PATCH TD SCH (09:26)
[2019-05-23] MEDS ORDERED: NICOTINE 7 MG/24 HOURS TOPICAL PATCH TD SCH (10:00)
== END 2019-05-21 09:41 | disposition home or self-care (01) | DRG 772 ==
LOC: YASAS 14:40 → Y3E 14:41
PROVIDERS: ADMIT Neuromusculoskeletal Medicine & OMM; ATTEND Neuromusculoskeletal Medicine & OMM
PROC: HZ42ZZZ Group Counseling for Substance Abuse Treatment, Cognitive-Behavioral (ICD-10-PCS; principal; 2019-05-15)
DX: F11.20 Opioid dependence, uncomplicated (principal); F13.20 Sedative, hypnotic or anxiolytic dependence, uncomplicated; F17.210 Nicotine dependence, cigarettes, uncomplicated; F19.24 Other psychoactive substance dependence with psychoactive substance-induced mood disorder; I10 Essential (primary) hypertension; J45.909 Unspecified asthma, uncomplicated; G62.9 Polyneuropathy, unspecified; M06.9 Rheumatoid arthritis, unspecified; K29.70 Gastritis, unspecified, without bleeding; G47.00 Insomnia, unspecified; R10.9 Unspecified abdominal pain; Z86.73 Personal history of transient ischemic attack (TIA), and cerebral infarction without residual deficits; Z91.19 Patient's noncompliance with other medical treatment and regimen
CPT/HCPCS: 93005; 93010; J0735